=== PATIENT | female | born 1960 | race Caucasian/White ===

== ENCOUNTER 2020-05-31 09:35 | Day surgery (SDC) | payer BC ==
[2020-05-24 15:44] LABS: BASOPHILS % (AUTO) 0.9 % (0-1); EOSINOPHILS # (AUTO) 0.4 X10'3 (0-0.9); EOSINOPHILS % (AUTO) 7.4 % (0-6); LYMPHOCYTES % (AUTO) 39.3 % (21-51); MEAN CORPUSCULAR HEMOGLOBIN 30.6 PG (27.0-31.0); MEAN CORPUSCULAR VOLUME 92.6 FL (78-98); MEAN PLATELET VOLUME 7.5 FL (7.4-10.4); MONOCYTES # (AUTO) 0.5 X10'3 (0-0.9); MONOCYTES % (AUTO) 8.9 % (2-12); NEUTROPHILS # (AUTO) 2.2 X10'3 (1.8-7.7); NEUTROPHILS % (AUTO) 43.5 % (42-75); PRE OP HEMATOCRIT 38.3 % (35.0-45.0); PRE OP HEMOGLOBIN 12.6 g/dL (12.0-16.0); PRE OP PLATELET COUNT 361 X10'3 (140-440); RED BLOOD COUNT 4.14 X10'6 (4.20-5.60); RED CELL DISTRIBUTION WIDTH 13.3 % (11.5-14.5)
[2020-05-24 15:51] LABS: ALBUMIN/GLOBULIN RATIO 1.1 (1.1-1.5); ALKALINE PHOSPHATASE 76 IU/L (46-116); BLOOD UREA NITROGEN 12 MG/DL (7-18); BUN/CREATININE RATIO 15.6 (6.6-38.0); CHLORIDE 103 MMOL/L (99-107); CREATININE 0.77 MG/DL (0.40-0.90); PRE OP ALT 35 U/L (30-65); PRE OP ANION GAP 6 (8-16); PRE OP AST 18 U/L (10-37); PRE OP BILIRUB, TOTAL 0.3 MG/DL (0.0-1.0); PRE OP GLUCOSE 116 MG/DL (70-104); PRE OP POTASSIUM 3.9 MMOL/L (3.4-5.1); PRE OP SODIUM 142 MMOL/L (135-145); TOTAL PROTEIN 7.6 G/DL (6.4-8.2); eGFR 76 ML/MIN
[2020-05-31] VITALS (11 sets, daily range): BP systolic 132–177; BP diastolic 70–137
[~2020-05-31] VITALS: Ht 165.1 cm; Wt 71.0 kg
[~2020-05-31 09:35] MED LIST: ACET-2319 PO; ANAS1TAB10 PO; ASPI-612 PO; BUPIVAcaine/PF 2.5 mg/ml (0.25%) 30ml vial ONE; CALC-1215 PO; DENO60DI SUBCUT; LIDOcaine 1% 30ml preserv. free vial ONE; METH1TAB PO; MULT-1074 PO; OMEG-79 PO; RED600TA PO; UBID100C16 PO; VITAMIN D3 PO; [UNRECOGNIZED DRUG - OTHER] PO; clindamycin-Cleocin 900mg/D5W 50 ML IV ONE; famotidine 20mg tablet PO ONE; ringers solution, lacted 1,000 ML IV SCH
[2020-05-31] MEDS ORDERED: INDOCYANINE GREEN 25 MG/10 ML VIAL IV ONE (10:13)
[2020-05-31] MEDS ORDERED: fentaNYL/PF 50MCG/1 ML 2ML syringe ONE (13:13)
[2020-05-31] MEDS ORDERED: midazolam 2 mg/2 ml injection ONE (13:13)
[2020-05-31] MEDS ORDERED: proCHLORperazine 10 MG/2 ml inj IV PRN (13:55)
[2020-05-31] MEDS ORDERED: ringers solution, lacted 1,000 ML IV SCH (13:55)
[2020-05-31] MEDS ORDERED: ondansetron/PF 4mg/2ml inj IV PRN (13:55)
[2020-05-31] MEDS ORDERED: morphine 2 MG/ML inj. syringe IV PRN (13:55)
[2020-05-31] MEDS ORDERED: morphine 4 MG/ML inj SYRINge IV PRN (13:55)
[2020-05-31] MEDS ORDERED: meperidine/PF 25mg/ml syringe IV PRN ×2 (13:55)
[2020-05-31] MEDS ORDERED: ondansetron/PF 4mg/2ml inj ONE (14:25)
[2020-05-31] MEDS ORDERED: neostigmine methylsulfate 1 MG/ML 10ml vial ONE (14:25)
[2020-05-31] MEDS ORDERED: rocuronium 10mg/ml inj IV ONE (14:25)
[2020-05-31] MEDS ORDERED: propofol inj 20 ML IV ONE (14:25)
[2020-05-31] MEDS ORDERED: dexamethasone sod phosphate 4mg/ml inj. ONE (14:25)
[2020-05-31] MEDS ORDERED: glycopyrrolate 0.2mg/ml inj ONE (14:26)
--- NOTE | 2020-05-31 14:50 | NUR ---
Received from OR via [facility], accompanied by Anesthesiologist DR GARCIA and report given by Anesthesiolgist. PATIENT AWAKE AND COUGHING-C/O DRY THROAT, DENIES PAIN, V/S WNL, NEUROVASCULAR-CHECKS INTACT, 20G PIV LUE, SCD ON, 3 BANDAIDS TO LAP SIGHTS OF ABDOMEN-CDI.
[2020-05-31] MEDS ORDERED: HYDROcodone/acetaminophen 5mg/325mg tablet PO PRN (14:55)
[2020-05-31] MEDS: meperidine/PF 25mg/ml syringe IV PRN ×3 (15:00→15:29)
--- NOTE | 2020-05-31 16:50 | NUR ---
PATIENT A&OX4, PAIN 08/04 - GIVEN 1 NORCO PRIOR TO D/C TO HELP WITH PERSISTANT PAIN, V/S WNL, NEUROVASCULAR CHECKS INTACT, 20G PIV LUE D/C, SCD OFF, 3 BANDAIDS TO LAP SIGHTS OF ABDOMEN-CDI. I HAVE REVIEWED D/C INSTRUCTIONS WITH PATIENT AND FAMILY HAVE VERBALIZED UNDERSTANDING.PATIENT WAS D/C HOME WITH ALL BELONGINGS AND FAMILY GAVE TRANSPORT HOME.
== END 2020-05-31 16:50 | disposition home or self-care (01) ==
LOC: PAS 09:35
PROVIDERS: ATTEND Surgery
DX: K80.10 Calculus of gallbladder with chronic cholecystitis without obstruction (principal); K43.6 Other and unspecified ventral hernia with obstruction, without gangrene; M81.0 Age-related osteoporosis without current pathological fracture; Z20.822 Contact with and (suspected) exposure to COVID-19; Z98.890 Other specified postprocedural states; Z85.3 Personal history of malignant neoplasm of breast; Z88.0 Allergy status to penicillin; Z79.899 Other long term (current) drug therapy; Z79.82 Long term (current) use of aspirin; Z72.89 Other problems related to lifestyle; Z82.3 Family history of stroke; Z83.3 Family history of diabetes mellitus; Z80.42 Family history of malignant neoplasm of prostate; Z82.49 Family history of ischemic heart disease and other diseases of the circulatory system
CPT/HCPCS: 36415; 47563; 49561; 80053; 82948; 85025; 87635; 93005; J1100; J2001; J2175; J2250; J2405; J2704; J2710; J3010; J3490; J7120; S2900; A4215; A4618